=== PATIENT | female | born 1950 | race Caucasian/White ===

== ENCOUNTER → 2016-11-12 | Outpatient (CLI) | payer OTHER | LOC: MMPC 10:00 | PROVIDERS: ATTEND Orthopaedic Surgery | DX: S82.842A Displaced bimalleolar fracture of left lower leg, initial encounter for closed fracture (principal); W00.0XXA Fall on same level due to ice and snow, initial encounter | CPT/HCPCS: 99203; G0463 ==

== ENCOUNTER 2016-11-13 07:58 | Day surgery (SDC) | payer OTHER ==
[~2016-11-13 07:58] MED LIST: ACETAMINOPHEN 1000 MG IV ONE; LIDOCAINE W/ SODIUM BICARB 0.5 ML SYR ONE; Lactated Ringers 1,000 ML PRIMARY IV ONE; ceFAZolin Inj 2gm (Premix) 50 ML IV ONE
--- NOTE | 2016-11-13 08:27 | EKG ---
[address] [address] Measurements Intervals [place] Rate: 99 P: 57 TX: 179 QRS: -28 QRSD: 166 T: 73 QT: 416 QTc: 472 Interpretive Statements SINUS RHYTHM WITH OCCASIONAL SUPRAVENTRICULAR PREMATURE COMPLEXES LEFT BUNDLE BRANCH BLOCK No previous ECG available for comparison Electronically Signed On 11-13-16 13:36:04 MST by Iron Wilkinson [email or web address]
[2016-11-13 08:50] LABS: HEMATOCRIT 38.5 % (37.0-47.0); HEMOGLOBIN 13.3 g/dL (12.0-16.0); MEAN CORPUSCULAR HEMOGLOBIN 32.4 PG (27-31); MEAN CORPUSCULAR HGB CONC 34.5 g/dL (33-37); RED BLOOD COUNT 4.11 10^6/uL (4.20-5.40); WHITE BLOOD COUNT 9.26 10^3/uL (4.8-10.8)
[2016-11-13 09:07] LABS: CALCIUM 9.5 mg/dL (8.7-10.7); POTASSIUM 4.4 meq/L (3.8-5.2); TOTAL PROTEIN 6.9 g/dL (6.1-8.0)
[2016-11-13] MEDS ORDERED: BACITRACIN 50,000 UNIT VIAL IRRIG ONE (09:22)
[2016-11-13] MEDS ORDERED: Sodium Chloride 0.9% vial 10 ML ONE (09:22)
[2016-11-13] MEDS ORDERED: fentaNYL Inj 250 MCG/5 ML VIAL ONE (09:41)
[2016-11-13] MEDS ORDERED: MIDAZOLAM 5 MG/1 ML ONE ×2 (09:41→09:51)
[2016-11-13] MEDS ORDERED: DEXAMETHASONE PF 10 MG/1 ML VIAL ONE (09:41)
[2016-11-13] MEDS ORDERED: BUPIVACAINE 0.5% W/EPI MPF -30 ML VIAL IV ONE (09:41)
[2016-11-13] MEDS ORDERED: MEPIVACAINE HCL/PF 20 MG/1 ML IV ONE (09:42)
[2016-11-13] MEDS ORDERED: PHENYLEPHRINE 10,000 MCG/1 ML VIAL ONE (10:31)
--- NOTE | 2016-11-13 11:31 | CRNA.PROCE ---
Nerve Block Documentation - - Safety Measures: Time Out Taken, Site Verified - - Type of Nerve Block Used: Left Popliteal Fossa Block (Analgesia block for post ankle ORIF, left.) Position for Nerve Block: Prone Moniters Used During Block: EKG, SPO2, NIBP Oxygen Sumpplented: Yes Sedation Used - Enter Amount in Comment Field: Midazolam (mg): Yes (2), Fentanyl (mcg): Yes (100) Skin Prep Used: ChloroPrep (Twice) Draped: No Technique: Nerve Stimulator Nerve Block Needle Used: 80 mm ProBlk II Stimulation Hz: 1 Stimulation Staring mA: 1.8 Stimulation Ending mA: 0.48 Local Anesthetic - Enter Amt in Comment Field: 0.5 % Bupivicaine with Epinephrine 1:200,000 (mL): Yes (20 ml in 3 ml increments), 2 % Mepivacaine (mL) : Yes (10 ml in 3 ml increments) Additives to Nerve Blocks: Dexamethasone (mL): Yes (10)
--- NOTE | 2016-11-13 11:33 | CRNA.PROCE ---
Central Neuraxis Block Placemt - - Safety Measures: Time Out Taken, Site Verified - - Type of Block: Subarachnoid Reason for Block: Surgical Moniters Used During Block: EKG, SPO2, NIBP Sedation Used - Enter Amount Used in Comment Field: Midazolam (mg): Yes (2 ), Fentanyl (mcg): Yes (100) Positioning: Sitting Skin Prep Used: ChloroPrep (Twice) Draped: Yes Skin Infiltration - Enter Amount Used in Comment Field: 1% Xylocaine (mL): Yes ( 1 ) Introducer User: 23 Gauge Spinal Needle Used: 25 Airam 80 mm (1 Dural puncture) Local Anesthetic - Enter Amount Used in Comment Field: 0.75 % Bupivacaine with Dextrose (ml): Yes (1.8 ml) Bioclusive Dressing Applied: No
[2016-11-13] MEDS ORDERED: NORMAL SALINE 10 ML SYRINGE FLUSH IVP PRN (12:18)
[2016-11-13] MEDS ORDERED: MORPHINE SULFATE 2 MG/1 ML IVP PRN (12:18)
[2016-11-13] MEDS ORDERED: ONDANSETRON 4 MG/2 ML VIAL IVP PRN (12:18)
[2016-11-13] MEDS ORDERED: HYDROcodone-APAP 7.5 MG-325 MG TABLET PO PRN (12:18)
[2016-11-13] MEDS ORDERED: Lactated Ringers 1,000 ML PRIMARY IV SCH (12:30)
[2016-11-13 14:45] VITALS: RESP 18
[2016-11-13 15:00] VITALS: TEMP 98.4
--- NOTE | 2016-11-13 16:47 | OPS CRUTCH ---
Diagnosis : Left Ankle ORIF Referral Reason: Gait Training/Walker O: The patient was instructed in the use of walker with gait belt, both on level surfaces and up and down stairs, non weight-bearing. The patient was issued a walker and instructed in its proper use and care. P: No further therapy is indicated at this time. MTDD
== END 2016-11-13 14:00 | disposition home or self-care (01) ==
LOC: SDSC 07:58
PROVIDERS: ATTEND Orthopaedic Surgery
DX: S82.852A Displaced trimalleolar fracture of left lower leg, initial encounter for closed fracture (principal); W00.0XXA Fall on same level due to ice and snow, initial encounter
CPT/HCPCS: 27823; 76001; 80053; 85027; 93005; 93010; 97530; A4216; J0690; J3010; S0020; J0131; J0670; J1100; J2250; J2370; J7120

== ENCOUNTER → 2016-11-19 | Outpatient (CLI) | payer OTHER | LOC: MMPC 10:00 | PROVIDERS: ATTEND Orthopaedic Surgery | DX: S82.852D Displaced trimalleolar fracture of left lower leg, subsequent encounter for closed fracture with routine healing (principal) ==

== ENCOUNTER → 2016-11-26 | Outpatient (CLI) | payer OTHER ==
--- NOTE | 2016-11-26 10:52 | DI ---
LEFT ANKLE, 11/26/2016 10:10 AM: Clinical History: Trimalleolar fracture of the left ankle, closed, with routine healing, subsequent e ncounter. Previous Exam: 11/10/2016. 3 views are submitted. The patient is status post ORIF of the fractures of the medial and lateral mal leoli. Both fractures are in anatomic alignment and position. Fracture lucencies are still visible at both fracture sites. There is either some avulsion of the periosteum versus periosteal new bone form ation at the site of the medial malleolar fracture. There is a step-off of the articular surface of t he distal tibia posteriorly at the site of the posterior malleolar fracture. This step off is approxi mately 2 mm, in the articular surface involvement is probably in the range of 10-15%. There are bony densities anterior to the anterior margin of the distal tibia and these represent avulsion fragments that were present at the time of the initial injury. Reading: Status post ORIF of fractures of the medial and lateral malleoli with chronic alignment and position. There is a fracture of the posterior malleolus with a step-off of approximately 2 mm.
== END ==
LOC: ORTHO 10:17
PROVIDERS: ATTEND Orthopaedic Surgery
DX: S82.852E Displaced trimalleolar fracture of left lower leg, subsequent encounter for open fracture type I or II with routine healing (principal)
CPT/HCPCS: 73610

== ENCOUNTER → 2016-12-10 | Outpatient (CLI) | payer OTHER ==
--- NOTE | 2016-12-10 12:54 | DI ---
LEFT ANKLE, 12/10/2016 10:28 AM: Clinical History: Closed trimalleolar fracture of the left ankle with routine healing. Previous Exam: 11/26/2016. 3 views are submitted. The fracture site involving the medial malleolus shows minimal periosteal new bone formation and partial obliteration of the fracture lucency indicating healing. On the lateral vi ew, the posterior malleolar fracture lucency is also less visible also indicating progressive healing . There has been no change in the appearance of the distal fibular fracture. The ankle mortise is int act. Reading: Evidence of definite healing at the fracture sites involving the medial and posterior malleoli. There has been no change in the appearance of the fracture lucency involving the distal fibular fracture.
== END ==
LOC: ORTHO 12:15
PROVIDERS: ATTEND Orthopaedic Surgery
DX: S82.852E Displaced trimalleolar fracture of left lower leg, subsequent encounter for open fracture type I or II with routine healing (principal)
CPT/HCPCS: 73610

== ENCOUNTER → 2016-12-17 | Outpatient (CLI) | payer OTHER | LOC: MMPC 10:00 | PROVIDERS: ATTEND Orthopaedic Surgery | DX: L76.82 Other postprocedural complications of skin and subcutaneous tissue (principal) ==

== ENCOUNTER → 2016-12-24 | Outpatient (CLI) | payer OTHER ==
--- NOTE | 2016-12-24 12:35 | DI ---
XR ANKLE COMPLETE MIN 3VW,12/24/2016 11:22 AM: Clinical History: Trimalleolar fracture of the left ankle. Previous Exam: December 10, 2016 Findings: 3 views of the left ankle are obtained, and demonstrate lag screw fixation of the medial malleolus. There is also screw and plate fixation of the left lateral malleolus. There is enthesopathy noted at the insertion of the Achilles tendon. There is what appears to be a stable os peroneus adjacent to the proximal portion of the fifth metata rsal. Impression: Stable postsurgical changes as above.
== END ==
LOC: ORTHO 11:34
PROVIDERS: ATTEND Orthopaedic Surgery
DX: S82.852E Displaced trimalleolar fracture of left lower leg, subsequent encounter for open fracture type I or II with routine healing (principal)
CPT/HCPCS: 73610; G0463

== ENCOUNTER → 2017-01-07 | Outpatient (CLI) | payer OTHER ==
--- NOTE | 2017-01-07 11:44 | DI ---
LEFT ANKLE, 01/07/2017 10:15 AM: Clinical History: Closed fracture malleolar fracture with routine healing. Previous Exam: 11/10/2016; 11/26/2016; 12/10/2016; and 12/24/2016. 3 views are submitted. The patient is status post ORIF of the trimalleolar fracture dislocation of th e left ankle. The fracture of the posterior malleolus shows progressive healing although there is sti ll a step-off of about 2 mm. Similar healing is noted in the distal fracture of the fibula. The fract ure through the medial malleolus shows a persistent lucency that is more pronounced on the oblique pr ojection than on the previous exam suggesting delayed union. On the AP projection, there is a 4 mm ballesteros bchondral lucency along the medial aspect of the dome of the talus suggesting an osteochondral defect has developed. Additionally, the joint space is narrowed on the lateral and oblique projections sinc e the exam of 12/10/2016. Readin. The fracture lucency is still visible at the medial malleolus it suggesting delayed or nonunion. 2. Progressive healing is noted in the fractures involving the fibula and the posterior malleolus. A lignment and position are anatomic. 3. There may be an osteochondral defect in the medial aspect of the dome of the talus. Also, there m ay be narrowing of the joint space since the prior exam of 12/10/2016.
== END ==
LOC: ORTHO 10:21
PROVIDERS: ATTEND Orthopaedic Surgery
DX: S82.852E Displaced trimalleolar fracture of left lower leg, subsequent encounter for open fracture type I or II with routine healing (principal)
CPT/HCPCS: 73610

== ENCOUNTER → 2017-01-28 | Outpatient (CLI) | payer OTHER ==
--- NOTE | 2017-01-28 12:51 | DI ---
XR ANKLE COMPLETE MIN 3VW,01/28/2017 10:21 AM: Clinical History: Trimalleolar fracture of the left ankle Previous Exam: January 07, 2017 Findings: 3 views of the left ankle are obtained, and demonstrate postsurgical changes consistent with lag scre w fixation of the medial malleolus. There is also screw and plate fixation of the lateral malleolus. Are stable in these up the at the insertion of the Achilles tendon on the posterior calcaneus. Overlying soft tissue swelling is seen. Impression: Stable postsurgical changes of the left ankle consistent with a healing bimalleolar fracture.
== END ==
LOC: ORTHO 10:23
PROVIDERS: ATTEND Orthopaedic Surgery
DX: S82.851E Displaced trimalleolar fracture of right lower leg, subsequent encounter for open fracture type I or II with routine healing (principal)
CPT/HCPCS: 73610

== ENCOUNTER → 2017-01-28 | Outpatient (CLI) | payer OTHER ==
[2017-01-28 11:07] LABS: HEMATOCRIT 39.2 % (37.0-47.0); HEMOGLOBIN 12.6 g/dL (12.0-16.0); MEAN CORPUSCULAR HEMOGLOBIN 31.1 PG (27-31); MEAN CORPUSCULAR HGB CONC 32.1 g/dL (33-37); MEAN PLATELET VOLUME 10.4 FL (7.4-12.2); RED BLOOD COUNT 4.05 10^6/uL (4.20-5.40)
== END ==
LOC: LAB 10:46
PROVIDERS: ATTEND Orthopaedic Surgery
DX: T81.4XXA Infection following a procedure, initial encounter (principal); S82.852E Displaced trimalleolar fracture of left lower leg, subsequent encounter for open fracture type I or II with routine healing
CPT/HCPCS: 36415; 85027; 85652; 86140

== ENCOUNTER 2017-01-29 05:57 | Inpatient (IN) | payer OTHER ==
[2017-01-29] MEDS ORDERED: LIDOCAINE W/ SODIUM BICARB 0.5 ML SYR ONE (06:05)
[2017-01-29] MEDS ORDERED: Lactated Ringers 1,000 ML PRIMARY IV ONE (06:05)
[2017-01-29] MEDS ORDERED: LIDOCAINE 2%/ EPI 1:200,000 - 20 ML VIAL ONE (06:52)
[2017-01-29] MEDS ORDERED: BUPivacaine Inj 0.5% PF (5mg/ml) 30ml vial ONE (06:53)
[2017-01-29] MEDS ORDERED: MIDAZOLAM 5 MG/1 ML ONE (06:53)
[2017-01-29] MEDS ORDERED: DEXAMETHASONE SOD PHOSPHATE 4 MG/1 ML VIAL ONE (06:53)
[2017-01-29] MEDS ORDERED: fentaNYL Inj 100 MCG/2 ML VIAL ONE (06:53)
[2017-01-29] MEDS ORDERED: Vancomycin Inj 1gm vial ONE (07:06)
[2017-01-29] MEDS ORDERED: Sodium Chloride 0.9% vial 10 ML ONE (07:07)
--- NOTE | 2017-01-29 08:03 | CRNA.PROCE ---
Nerve Block Documentation - - Type of Nerve Block Used: Left Popliteal Fossa Block Position for Nerve Block: Prone Sedation Used - Enter Amount in Comment Field: Midazolam (mg): Yes (2mg) Skin Prep Used: ChloroPrep Draped: No Technique: Nerve Stimulator Nerve Block Needle Used: 80 mm ProBlk II Stimulation Hz: 2 Stimulation Staring mA: 1.4 Stimulation Ending mA: 0.4 Local Anesthetic - Enter Amt in Comment Field: 0.5 % Bupivacaine Plain (mL): Yes (20ml), 2 % Xylocaine with Epinephrine 1:200,000 (mL): Yes (20ml) Additives to Nerve Blocks: Dexamethasone (mL): Yes (8mg(2ml))
[2017-01-29] MEDS ORDERED: BUPIVACAINE 0.5% W/ EPI - 10 ML VIAL ONE (08:29)
[2017-01-29 09:30] LABS: BLOOD UREA NITROGEN 17 mg/dL (7-22); BUN/CREATININE RATIO 24.28 (6-20); CALCIUM 8.8 mg/dL (8.7-10.7); EST GLOMERULAR FILTRATION > 60 (>60 ml/min/1.73m(2))
[2017-01-29] MEDS ORDERED: KETOROLAC 30 MG/1 ML VIAL IVP ONE (09:45)
[2017-01-29] MEDS ORDERED: KETOROLAC 30 MG/1 ML VIAL ONE (09:47)
[2017-01-29] MEDS ORDERED: MAG HYDROX/AL HYDROX/SIMETH 30 ML SUSP PO PRN (10:24)
[2017-01-29] MEDS ORDERED: diphenhydrAMINE 25 MG CAPSULE PO PRN (10:24)
[2017-01-29] MEDS ORDERED: BISACODYL 10 MG SUPPOSITORY RECTAL PRN (10:24)
[2017-01-29] MEDS ORDERED: FISH OIL 1000 MG PO SCH (10:24)
[2017-01-29] MEDS ORDERED: ONDANSETRON 4 MG/2 ML VIAL IVP PRN (10:24)
[2017-01-29] MEDS ORDERED: MORPHINE SULFATE 2 MG/1 ML IVP PRN (10:24)
[2017-01-29] MEDS ORDERED: Ondansetron ODT Tab 8 MG TAB PO PRN (10:24)
[2017-01-29] MEDS ORDERED: CALCIUM CARBONATE 500 MG (TUMS) CHEWABLE TABLET PO PRN (10:24)
[2017-01-29] MEDS ORDERED: IBUPROFEN 400 MG TABLET PO PRN (10:24)
[2017-01-29] MEDS ORDERED: BISACODYL 5 MG TABLET PO PRN (10:24)
[2017-01-29] MEDS ORDERED: Prochlorperazine Tab 10 MG TAB PO PRN (10:24)
[2017-01-29] MEDS ORDERED: Lactated Ringers 1,000 ML PRIMARY IV SCH (10:24)
[2017-01-29] MEDS ORDERED: ACETAMINOPHEN 325 MG TABLET PO PRN (10:24)
[2017-01-29] MEDS ORDERED: Lidocaine 1% 10 MG/ML - 20 ML VIAL SUBCUT PRN (10:34)
[2017-01-29] MEDS ORDERED: LIDOCAINE 2% 20 MG/ML - 20 ML VIAL SUBCUT PRN (10:34)
[2017-01-29] MEDS ORDERED: NORMAL SALINE 10 ML SYRINGE FLUSH IV PRN (10:34)
[2017-01-29] MEDS ORDERED: MORPHINE SULFATE 4 MG/1 ML IV PRN (11:05)
[2017-01-29] MEDS ORDERED: MORPHINE SULFATE 2 MG/1 ML IV PRN (11:05)
[2017-01-29] MEDS ORDERED: MORPHINE SULFATE 10 MG/1 ML IV PRN (11:05)
--- NOTE | 2017-01-29 11:19 | CONSULT ---
Consult Note - Consult Consult Date: 01/29/17 Reason for Consult: PostOp Consulation : Ortho Requesting Physician: Dr. 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 On Saturday she started to develop swelling and increasing pain and some drainage from the site and because of that she saw Dr. Zamudio yesterday he took her to surgery today and removed the hardware he washed with antibiotics and he thought that she had osteomyelitis. He did tell me that he spoke with infectious disease who recommended vancomycin. Cultures were already taken. The patient is denying symptoms now there is no pain, no nausea, no chest pain or shortness of breath. Past Medical History Medical History: 1. History of cardiomyopathy before she attributed that to the previous infection with ejection fraction being 20% 2011. 2. History of hypertension. 3. History of breast cancer status post mastectomy and chemotherapy. Surgical History: 1. Right mastectomy. 2. Open reduction internal fixation of left bimalleolar fracture Family History: Reviewed an Not Pertinent Past Social History: Does not smoke, doesn't drink and no drugs. Tobacco Use: Never Smoker Substance Use Type: None Alcohol Use: None Review of Systems - Review of Systems All Systems: Reviewed & No Additional Complaints Except as Stated Medication / Allergies Home Medications: Home Medications Medication Instructions Recorded Confirmed Type Aspirin [Aspir 81] 81 mg ORAL QD tab 04/04/12 01/29/17 History Fish Oil 1,000 Mg Ec Softgel 1 each PO DAILY 04/04/12 01/29/17 History Furosemide 20 mg PO qd prn 30 Days 04/17/12 01/29/17 Clinic Potassium Chloride 10 meq PO qd with furosemide 30 04/17/12 01/29/17 Clinic Days Lisinopril 1 tab PO DAILY tab 11/12/16 01/29/17 History Hydrocodone/Acetaminophen 1 tab PO Q6-8H #40 tab 01/22/17 01/29/17 Clinic [Hydrocodon-Acetaminoph 7.5-325] Allergies/Adverse Reactions: Allergies Allergy/AdvReac Type Severity Reaction Status Date / Time Tetanus Vaccines and Toxoid Allergy Unknown Anaphylaxis Verified 01/29/17 19:49 [Tetanus] Exam - Vitals Vital Signs: Vital Signs Temperature 96.0 F Temperature Source Temporal Artery Scan Pulse Rate [Pulse Oximeter] 85 Pulse Rate 97 Respiratory Rate 16 Blood Pressure [right leg] 148/100 Blood Pressure 131/74 Pulse Ox 95 Oxygen Flow Rate 2 Oxygen Delivery Method Nasal Cannula Height 5 ft 4 in Weight 172 lb - General General Appearance: POSITIVE: No Acute Distress, Cooperative - Head Head Exam: POSITIVE: Normal Inspection, Atraumatic - Eye Eye Exam: POSITIVE: Normal Appearance - ENT ENT Exam: POSITIVE: Normal Exam - Neck Neck Exam: POSITIVE: Normal Inspection - Respiratory Respiratory Exam: POSITIVE: Clear to Auscultation - Bilaterally - Cardiovascular Cardiovascular Exam: POSITIVE: RRR - GI/Abdominal GI/Abdominal Exam: POSITIVE: Normal Bowel Sounds, Non Tender, Non Distended, Soft - Rectal Rectal Exam: POSITIVE: Deferred - External Exam: POSITIVE: Deferred - Extremities Additional Extremities Exam Details: Dressing applied left leg. Minimal edema on the right leg - Back Back Exam: POSITIVE: Normal Inspection - Neurological Neurological Exam: POSITIVE: Alert, Oriented x 3, CN II-XII Intact - Psychiatric Psychiatric Exam: POSITIVE: Normal Affect Results - Labs CBC and BMP: 01/30/17 05:22 01/30/17 05:22 Labs - Last 24 Hours: Laboratory Results 01/29/17 01/29/17 Range/Units 08:45 09:21 Sodium 137 (135-145) meq/L Potassium 3.7 L (3.8-5.2) meq/L Chloride 107 (98-112) meq/L Carbon Dioxide 19 L (23-33) meq/L Anion Gap 11 (5-20) BUN 17 (7-22) mg/dL Creatinine 0.7 0.7 (0.50-1.20) mg/dL Estimated GFR > 60 (>60 ml/min/1.73m(2)) BUN/Creatinine Ratio 24.28 H (6-20) Glucose 159 H (78-110) mg/dL Calculated Osmolality 288.0 (267-292) mOsm/kg Calcium 8.8 (8.7-10.7) mg/dL Assessment and Plan - Patient Problems (1) Osteomyelitis of left leg Current Visit: Yes Status: Acute Comment: Cultures were sent, she was started on vancomycin and will continue she 'll have a PICC line inserted today. We'll try to get an appointment with infectious disease for her. (2) Hypertension Current Visit: Yes Status: Acute Comment: Continue her lisinopril. (3) History of cardiomyopathy Current Visit: Yes Status: Acute Comment: She said she used to be on a beta mike and now she is only on lisinopril, not sure about the status of her LV function. Will continue with her previous medications for now. The Lasix she said take it is as needed depending on swelling in her legs twice a week. Will Watch her fluid status and decide when to give her the Lasix. (4) Elevated blood sugar Current Visit: Yes Status: Acute Comment: She never been told that she has diabetes mellitus blood sugar is elevated we'll check her A1c and fasting tomorrow. (5) DVT prophylaxis Current Visit: Yes Status: Acute Comment: She'll be started on Xarelto tomorrow
[2017-01-29] MEDS: HYDROcodone-APAP 7.5 MG-325 MG TABLET PO PRN ×2 (11:34→17:52)
--- NOTE | 2017-01-29 15:52 | PT.PROG ---
Progress Note Progress Note: S: Pt. states she is feeling pretty good. States she is getting around pretty good. O: Treatment of gait training on even surface with use of walker and CGA from eob to bathroom. Pt. was able to perform bed mobility independently and sit to stand with supervision. A: Pt. performed gait training very well with little difficulty. She demonstrates safety and proper weight bearing precautions. P: D/C patient from therapies at this time as no further therapy is indicated. Freda Andrews, [employer] [facility]
--- NOTE | 2017-01-29 17:47 | DI ---
XR FLUORO PHYS TIME UP TO 1HR, US VASCULAR ACCESS-US GUIDANCE, XR PICC LINE INSERTION 5 YRS>,11/13/2016 9:30 AM: Clinical History: Osteomyelitis. Previous Exam: None at this facility. Procedure: Risks, benefits and alternatives were explained to the patient and informed written consen t obtained. The patient was placed supine on the fluoroscopy table and the left arm prepped and draped in usual s terile fashion. 1% lidocaine was used for local anesthesia. The basilic vein was originally accessed however, there was some resistance to the 018 wire although this passed to the level of the axillary vein without problems. The power PICC would not advance beyo nd the axillary vein. The brachial vein was then accessed 2 other times. The third access of the left brachial vein was suc cessful and an 018 wire advanced to the level of the innominate vein. A small skin incision was made with an 11 blade scalpel. A peel-away catheter was then advanced in place and the power PICC advanced through the peel-away cat heter. The tip of the catheter was seen at the cavoatrial junction and was fastened to the skin with the pro vided fastener device. The PICC line flushed freely. 4 total views were obtained of the catheter demo nstrating the tip in good position. Findings: Sonographic images demonstrate the tip of the needle within the left brachial vein. Plain film images demonstrate the catheter with the tip in the distal superior vena cava. There is no evidence of pneumothorax. Impression: Successful placement of a left PICC line with the tip in good position.
--- NOTE | 2017-01-29 19:11 | DI ---
XR PICC LINE INSERTION 5 YRS>,01/29/2017 10:34 AM: Clinical History: Osteomyelitis. Previous Exam: None at this facility. Procedure: Risks, benefits and alternatives were explained to the patient and informed written consen t obtained. The patient was placed supine on the fluoroscopy table and the left arm prepped and drape d in usual sterile fashion. 1% lidocaine was used for local anesthesia. The basilic vein was originally accessed however, there was some resistance to the 018 wire although this passed to the level of the axillary vein without problems. The power PICC would not advance beyo nd the axillary vein. The brachial vein was then accessed 2 other times. The third access of the left brachial vein was successful and an 018 wire advanced to the level of th e innominate vein. A small skin incision was made with an 11 blade scalpel. A peel-away catheter was then advanced in place and the power PICC advanced through the peel-away catheter. The tip of the catheter was seen at the cavoatrial junction and was fastened to the skin with the pro vided fastener device. The PICC line flushed freely. 4 total views were obtained of the catheter demo nstrating the tip in good position. Findings: Sonographic images demonstrate the tip of the needle within the left brachial vein. Plain film images demonstrate the catheter with the tip in the distal superior vena cava. There is no evide nce of pneumothorax. Impression: Successful placement of a left PICC line with the tip in good position.
[2017-01-30] MEDS: HYDROcodone-APAP 7.5 MG-325 MG TABLET PO PRN ×3 (00:58→16:12)
[2017-01-30 05:39] LABS: BASOPHILS # (AUTO) 0.01 10*3/UL; BASOPHILS % (AUTO) 0.1 % (0-1); EOSINOPHILS # (AUTO) 0 10*3/UL; EOSINOPHILS % (AUTO) 0 % (0-8); HEMATOCRIT 36.2 % (37.0-47.0); HEMOGLOBIN 11.7 g/dL (12.0-16.0); LYMPHOCYTES # (AUTO) 1.21 10*3/uL; MEAN CORPUSCULAR HEMOGLOBIN 30.8 PG (27-31); MEAN CORPUSCULAR HGB CONC 32.3 g/dL (33-37); MEAN CORPUSCULAR VOLUME 95.3 FL (81-99); MEAN PLATELET VOLUME 10.7 FL (7.4-12.2); MONOCYTES # (AUTO) 0.58 10*3/UL (0.3-0.8); MONOCYTES % (AUTO) 7.2 % (5-15); NEUTROPHILS # (AUTO) 6.21 10*3/UL; NEUTROPHILS % (AUTO) 77.5 % (50-80)
[2017-01-30 05:40] LABS: PLATELET MORPHOLOGY COMMENT NORMAL MORPHOLOGY (NORM); RBC MORPHOLOGY COMMENT NORMAL MORPHOLOGY (NORM); WBC MORPHOLOGY COMMENT NORMAL MORPHOLOGY (NORM)
[2017-01-30 05:45] LABS: HEMOGLOBIN A1C 7.86 % (4.2-6.0)
[2017-01-30 05:49] LABS: BLOOD UREA NITROGEN 28 mg/dL (7-22); CALCIUM 9.4 mg/dL (8.7-10.7); EST GLOMERULAR FILTRATION > 60 (>60 ml/min/1.73m(2))
[2017-01-30] MEDS ORDERED: FUROSEMIDE 20 MG TABLET PO PRN (07:00)
[2017-01-30] MEDS ORDERED: Influenza 16-17 Vaccine(4yrs+) 45 MCG/0.5 ML SYRINGE IM ONE (07:15)
--- NOTE | 2017-01-30 07:57 | PDOC(PROG) ---
Date and Time of Service: 01/30/2017 7:51 AM Interval History: Subjective Patient have some pain in the left ankle, otherwise denying other symptoms. She had a history of what it sounded like an aphthous ulcer post mastectomy and she attributed that to having an upset stomach. Objective : Data - Labs CBC and BMP: 01/30/17 05:22 01/30/17 05:22 Labs - Last 24 Hours: Laboratory Results 01/29/17 01/29/17 01/30/17 Range/Units 08:45 09:21 05:22 WBC 8.02 (4.8-10.8) 10^3/uL RBC 3.80 L (4.20-5.40) 10^6/uL Hgb 11.7 L (12.0-16.0) g/dL Hct 36.2 L (37.0-47.0) % MCV 95.3 (81-99) FL MCH 30.8 (27-31) PG MCHC 32.3 L (33-37) g/dL RDW Std Deviation 52.1 H (39-50) fL RDW Coeff of Joycelyn 15.4 H (11.5-14.5) % Plt Count 300 (140-350) 10*3/uL MPV 10.7 (7.4-12.2) FL Immature Gran % (Auto) 0.1 (0-5) % Neut % (Auto) 77.5 (50-80) % Lymph % (Auto) 15.1 (10-50) % [place] % (Auto) 7.2 (5-15) % Eos % (Auto) 0 (0-8) % Baso % (Auto) 0.1 (0-1) % Immature Gran # (Auto) 0.01 10*3/UL Neut # (Auto) 6.21 10*3/UL Lymph # (Auto) 1.21 10*3/uL [place] # (Auto) 0.58 (0.3-0.8) 10*3/UL Eos # (Auto) 0 10*3/UL Baso # (Auto) 0.01 10*3/UL WBC Morphology Comment Normal morphology (NORM) Plt Morphology Comment Normal morphology (NORM) RBC Morph Comment Normal morphology (NORM) Sodium 137 135 (135-145) meq/L Potassium 3.7 L 4.4 (3.8-5.2) meq/L Chloride 107 106 (98-112) meq/L Carbon Dioxide 19 L 17 L (23-33) meq/L Anion Gap 11 12 (5-20) BUN 17 28 H (7-22) mg/dL Creatinine 0.7 0.7 0.8 (0.50-1.20) mg/dL Estimated GFR > 60 > 60 (>60 ml/min/1.73m(2)) BUN/Creatinine Ratio 24.28 H 35.00 H (6-20) Glucose 159 H 332 H (78-110) mg/dL Mean Blood Glucose 175.738 mg/dL Hemoglobin A1c 7.86 H (4.2-6.0) % Calculated Osmolality 288.0 298.0 H (267-292) mOsm/kg Calcium 8.8 9.4 (8.7-10.7) mg/dL Objective : Exam - General General Appearance: No Acute Distress, Cooperative - Head Head Exam: Normal Inspection - Eye Eye Exam: Normal Appearance - ENT ENT Exam: Normal Exam Additonal ENT Exam Details: There is very small aphthous ulcer on the inside of the lower lip - Neck Neck Exam: Normal Inspection - Respiratory Respiratory Exam: Clear to Auscultation - Bilaterally - Cardiovascular Cardiovascular Exam: RRR - GI/Abdominal GI/Abdominal Exam: Normal Bowel Sounds, Non Tender, Non Distended, Soft - Rectal Rectal Exam: Deferred - External Exam: Deferred - Extremities Additional Extremities Exam Details: Dressing applied to the left leg - Back Back Exam: Normal Inspection - Neurological Neurological Exam: Alert, Oriented x 3, CN II-XII Intact, Moves All Extremities Equally - Psychiatric Psychiatric Exam: Normal Affect Assessment and Plan - Patient Problems (1) Osteomyelitis of left leg Current Visit: Yes Status: Acute Comment: Continue current antibiotics waiting for culture result. We did fax the records to infectious disease to see whether we can get an appointment for her this coming Saturday in the clinic in [place] (2) Hypertension Current Visit: Yes Status: Acute Comment: Continue lisinopril (3) History of cardiomyopathy Current Visit: Yes Status: Acute Comment: Continue holding the Lasix for another day (4) DVT prophylaxis Current Visit: Yes Status: Acute Comment: She'll be started on Xarelto (5) Diabetes Current Visit: Yes Status: Acute Comment: This is new onset, will watch her blood sugar and put her on sliding scale, consider adding long-acting insulin tomorrow
--- NOTE | 2017-01-30 07:59 | ORTHO.PROG ---
Last Taken Vital Signs: Vital Signs - Last Taken Temperature 97.4 F 01/30/17 05:00 Pulse Rate 94 01/30/17 05:00 Respiratory Rate 20 01/30/17 05:00 Blood Pressure 144/80 01/30/17 05:00 Pulse Ox 93 01/30/17 05:00 Subjective: Patient notes pain along the medial malleolar region but otherwise doing well patient notes that she was having some soreness inside her mouth which she had previously when she was having chemotherapy. Objective: Left splint clean and dry no bleeding neurovascularly intact good motion of the toes Intake and Output - 8hrs 01/29/17 01/29/17 01/30/17 01/30/17 13:59 21:59 05:59 13:59 Intake: IV 1450 Intake Oral Amount 440 840 Output: Output, Urine Amount 150 75 200 Output, Estimated Blood 25 Loss Amount Other: Percent Meal Consumed 100% 100% Number of Voids 1 Weight 78.018 kg Weight Measurement Method Standing Scale Laboratory Results 01/29/17 01/29/17 01/30/17 Range/Units 08:45 09:21 05:22 WBC 8.02 (4.8-10.8) 10^3/uL RBC 3.80 L (4.20-5.40) 10^6/uL Hgb 11.7 L (12.0-16.0) g/dL Hct 36.2 L (37.0-47.0) % MCV 95.3 (81-99) FL MCH 30.8 (27-31) PG MCHC 32.3 L (33-37) g/dL RDW Std Deviation 52.1 H (39-50) fL RDW Coeff of Joycelyn 15.4 H (11.5-14.5) % Plt Count 300 (140-350) 10*3/uL MPV 10.7 (7.4-12.2) FL Immature Gran % (Auto) 0.1 (0-5) % Neut % (Auto) 77.5 (50-80) % Lymph % (Auto) 15.1 (10-50) % [place] % (Auto) 7.2 (5-15) % Eos % (Auto) 0 (0-8) % Baso % (Auto) 0.1 (0-1) % Immature Gran # (Auto) 0.01 10*3/UL Neut # (Auto) 6.21 10*3/UL Lymph # (Auto) 1.21 10*3/uL [place] # (Auto) 0.58 (0.3-0.8) 10*3/UL Eos # (Auto) 0 10*3/UL Baso # (Auto) 0.01 10*3/UL WBC Morphology Comment Normal morphology (NORM) Plt Morphology Comment Normal morphology (NORM) RBC Morph Comment Normal morphology (NORM) Sodium 137 135 (135-145) meq/L Potassium 3.7 L 4.4 (3.8-5.2) meq/L Chloride 107 106 (98-112) meq/L Carbon Dioxide 19 L 17 L (23-33) meq/L Anion Gap 11 12 (5-20) BUN 17 28 H (7-22) mg/dL Creatinine 0.7 0.7 0.8 (0.50-1.20) mg/dL Estimated GFR > 60 > 60 (>60 ml/min/1.73m(2)) BUN/Creatinine Ratio 24.28 H 35.00 H (6-20) Glucose 159 H 332 H (78-110) mg/dL Mean Blood Glucose 175.738 mg/dL Hemoglobin A1c 7.86 H (4.2-6.0) % Calculated Osmolality 288.0 298.0 H (267-292) mOsm/kg Calcium 8.8 9.4 (8.7-10.7) mg/dL Microbiology 01/29/17 07:51 Gram Stain - Final Ankle - Left Assessment: Left medial malleolus osteomyelitis on vancomycin Plan: Continue with vancomycin based on the level recommended by infectious disease, await final culture results to see if we can switch to a different medication. Mobilize on crutches or walker. Patient states when she was having chemotherapy she gets similar lesions in her mouth and H2 mike was helpful.
[2017-01-30] MEDS: Insulin Lispro Flexpen 300 UNIT/3 ML INSULN.PEN SUBCUT SCH ×3 (08:25→16:17)
[2017-01-30] MEDS: LISINOPRIL 20 MG TABLET PO SCH (08:38)
[2017-01-30] MEDS: ASPIRIN EC 81 MG TABLET PO SCH (08:38)
[2017-01-30] MEDS: Rivaroxaban Tab 10 MG TAB PO SCH (08:39)
[2017-01-30] MEDS ORDERED: LISINOPRIL 20 MG TABLET PO SCH (09:00)
[2017-01-30] MEDS: NORMAL SALINE 10 ML SYRINGE FLUSH IVP PRN (09:01)
[2017-01-30] MEDS: OMEPRAZOLE 20 MG CAPSULE PO SCH (09:09)
--- NOTE | 2017-01-30 12:37 | CRNA.PROGR ---
Anesthesia Note Anesthesia Progress Note: Post OP Anesthesia Note Pt is sitting up in bed, awake alert and oriented x4, she is tolerating a regular diet, pain is well under control. Current VS stable. Vital Signs (Last 8 hours) Temp Pulse Resp BP Pulse Ox 01/30/17 11:24 97.8 F 101 H 18 139/71 97 01/30/17 08:16 97.8 F 102 H 18 141/73 91 01/30/17 05:00 97.4 F 94 20 144/80 93
--- NOTE | 2017-01-30 17:33 | ORTHO.PROG ---
Last Taken Vital Signs: Vital Signs - Last Taken Temperature 97.6 F 01/30/17 16:13 Pulse Rate 64 01/30/17 16:13 Respiratory Rate 16 01/30/17 16:13 Blood Pressure 148/96 01/30/17 16:13 Pulse Ox 97 01/30/17 11:24 Subjective: Patient notes she has some increasing swelling today when she was up moving around but otherwise is doing relatively well and feels her pain is reasonably controlled on her oral medications. 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 Skin edges looked good otherwise sensory exam are benign. Current Visit Problems DVT prophylaxis (Acute) [id number] Diabetes (Acute) E11.9 Elevated blood sugar (Acute) R73.9 History of cardiomyopathy (Acute) Z86.79 Hypertension (Acute) I10 Osteomyelitis of left leg (Acute) M86.9 Microbiology 01/29/17 07:51 Ankle - Left Gram Stain - Final 01/29/17 07:51 Ankle - Left Aerobic Culture - Preliminary The aerobic cultures preliminarily showed gram-negative hussein identification pending. Gram stain said rare gram-positive cocci Assessment: Left medial malleolus osteomyelitis, cultures pending Plan: At the current time we will continue with IV that vancomycin with a trough level on Saturday morning prior to the next dose. Try to have the patient seen by infectious disease this Saturday in [place]. Follow-up with myself in approximately 12 days for suture removal but we will have the patient follow up the beginning of next week for a dressing change. I will be leaving the area and will have Dr. eNwberry follow the patient, Dr. Newberry we'll talk to Dr. Mejia about continued care until discharge. I will attempt to discuss case with Dr. covarrubias as on late morning or afternoon.
[2017-01-31] MEDS: HYDROcodone-APAP 7.5 MG-325 MG TABLET PO PRN ×3 (04:13→23:34)
[2017-01-31] MEDS: OMEPRAZOLE 20 MG CAPSULE PO SCH (07:36)
[2017-01-31] MEDS: Insulin Lispro Flexpen 300 UNIT/3 ML INSULN.PEN SUBCUT SCH ×3 (07:36→16:40)
[2017-01-31] MEDS: ASPIRIN EC 81 MG TABLET PO SCH (09:53)
[2017-01-31] MEDS: LISINOPRIL 20 MG TABLET PO SCH (09:53)
[2017-01-31] MEDS: Rivaroxaban Tab 10 MG TAB PO SCH (09:53)
[2017-01-31] MEDS ORDERED: metFORMIN 500 MG TABLET PO ONE (11:38)
--- NOTE | 2017-01-31 13:19 | DCSUMMARY ---
Hospitalization Summary Hospital Course: Final Discharge Diagnosis: Current Visit Problems Problem Status Priority Diagnosed Code DVT prophylaxis Acute [id number] Diabetes Acute E11.9 Elevated blood sugar Acute R73.9 History of cardiomyopathy Acute Z86.79 Hypertension Acute I10 Osteomyelitis of left leg Acute M86.9 Diagnostic Data, Laboratory Data, and Procedures of Signifigance: Laboratory Results 01/29/17 01/29/1717 Range/Units 08:45 09:21 05:22 WBC 8.02 (4.8-10.8) 10^3/uL RBC 3.80 L (4.20-5.40) 10^6/uL Hgb 11.7 L (12.0-16.0) g/dL Hct 36.2 L (37.0-47.0) % MCV 95.3 (81-99) FL MCH 30.8 (27-31) PG MCHC 32.3 L (33-37) g/dL RDW Std Deviation 52.1 H (39-50) fL RDW Coeff of Joycelyn 15.4 H (11.5-14.5) % Plt Count 300 (140-350) 10*3/uL MPV 10.7 (7.4-12.2) FL Immature Gran % (Auto) 0.1 (0-5) % Neut % (Auto) 77.5 (50-80) % Lymph % (Auto) 15.1 (10-50) % Cowley % (Auto) 7.2 (5-15) % Eos % (Auto) 0 (0-8) % Baso % (Auto) 0.1 (0-1) % Immature Gran # (Auto) 0.01 10*3/UL Neut # (Auto) 6.21 10*3/UL Lymph # (Auto) 1.21 10*3/uL Cowley # (Auto) 0.58 (0.3-0.8) 10*3/UL Eos # (Auto) 0 10*3/UL Baso # (Auto) 0.01 10*3/UL WBC Morphology Comment Normal morphology (NORM) Plt Morphology Comment Normal morphology (NORM) RBC Morph Comment Normal morphology (NORM) Sodium 137 135 (135-145) meq/L Potassium 3.7 L 4.4 (3.8-5.2) meq/L Chloride 107 106 (98-112) meq/L Carbon Dioxide 19 L 17 L (23-33) meq/L Anion Gap 11 12 (5-20) BUN 17 28 H (7-22) mg/dL Creatinine 0.7 0.7 0.8 (0.50-1.20) mg/dL Estimated GFR > 60 > 60 (>60 ml/min/1.73m(2)) BUN/Creatinine Ratio 24.28 H 35.00 H (6-20) Glucose 159 H 332 H (78-110) mg/dL Mean Blood Glucose 175.738 mg/dL Hemoglobin A1c 7.86 H (4.2-6.0) % Calculated Osmolality 288.0 298.0 H (267-292) mOsm/kg Calcium 8.8 9.4 (8.7-10.7) mg/dL History and Physical pertinent to Admission: Past Medical History Medical History: 1. History of cardiomyopathy before she attributed that to the previous infection with ejection fraction being 20% 2011. 2. History of hypertension. 3. History of breast cancer status post mastectomy and chemotherapy. Surgical History: 1. Right mastectomy. 2. Open reduction internal fixation of left bimalleolar fracture Family History: Reviewed an Not Pertinent Past Social History: Does not smoke, doesn't drink and no drugs. Tobacco Use: Never Smoker Substance Use Type: None Alcohol Use: None Course of Hospitalization: Is a very nice 66-year-old female past medical history significant for cardiomyopathy her EF was 20% in 2012 started to develop swelling and increasing pain and drainage left lower extremity diagnosed with osteomyelitis and was started on vancomycin under the recommendation of infectious disease cultures are taken. She also was newly diagnosed with diabetes with a hemoglobin A1c of 7.8. I will start her on Lantus 10 units tonight and by mouth metformin we will check sugars in the morning. She will be discharged in a.m. to go see the infectious disease specialist I will also make an appointment with a primary care physician at their request to help manage the diabetes. She will have follow-ups with both orthopedic surgery and infectious disease she also had a PICC line inserted I stopped her Motrin she is on xarelto for DVT prophylaxis I given her a prescription for 10 days worth she will review this with her primary care physician and Dr. Zamudio for her DVT prophylaxis and she is also on aspirin she also probably needs a cardiac workup considering her EF of 20% in 2012 I don't know if anyone followed up with this her primary care physician is Dr. Nails. On the date of discharge, the patient was examined: Gen.: No acute distress, alert, nontoxic Heart: Regular rate and rhythm, no murmurs, clicks, gallops, or rubs Lungs: Clear to auscultation bilaterally, breathing is nonlabored Abdomen/GI: Normal tones on auscultation, soft, nontender, nondistended Musculoskeletal/extremities: No clubbing, cyanosis, or edema Vitals reviewed and are listed below Vital Signs (24 hrs) Temp Pulse Pulse Resp BP Pulse Ox 01/31/17 11:43 97.6 F 90 16 139/97 92 01/31/17 07:04 97.6 F 89 16 133/85 94 01/31/17 07:00 64 89 16 01/31/17 04:39 97.5 F 85 20 126/93 96 01/31/17 00:31 97.5 F 86 22 128/75 96 01/30/17 20:22 97.0 F 94 24 115/76 95 01/30/17 16:13 97.6 F 64 16 148/96 Assessment and Plan: 1. As per discharge assessments above 2. Disposition: 3. Condition on discharge, stable and improved. 4. Diet: A better diet low-carb 5. Activities: resume normal activities 6. Follow-Up: 1. PCP she has an appointment with Dr. Lowe in the morning and infectious disease as well 2. 7. Medications at the Time of Discharge: Active Medications Generic Name Dose Route Start Last Admin Trade Name Freq PRN Reason Stop Dose Admin Acetaminophen 325 - 650 mg 01/29/17 10:24 Tylenol PO Q4H PRN pain or fever Acetaminophen/Hydrocodone Bitart 1 tab 01/29/17 10:24 01/31/17 13:04 [place] 7.5/325 Tab PO 1 tab Q6H PRN Administration Pain Al Hydroxide/Mg Hydroxide 10 - 20 ml 01/29/17 10:24 Mylanta Liquid PO Q6H PRN Indigestion Aspirin 81 mg 01/30/17 09:00 01/31/17 09:53 Aspirin Ec PO 81 mg DAILY MARICHUY Administration Bisacodyl 10 mg 01/29/17 10:24 Bisac-Evac Supp RECTAL ONCE PRN Constipation Bisacodyl 10 mg 01/29/17 10:24 Dulcolax Tab PO BID PRN Constipation Calcium Carbonate 1 - 2 tab 01/29/17 10:24 Tums PO Q4H PRN Indigestion Diphenhydramine HCl 25 - 50 mg 01/29/17 10:24 Benadryl PO Q4H PRN Itching Heparin Sodium (Porcine) 300 - 500 unit 01/29/17 10:34 Heparin Lock Inj (For Central Line) IVP BID PRN Flush Sodium Chloride 25 mls @ 200 mls/hr 01/29/17 10:24 01/31/17 08:47 Normal Saline 0.9% IV 200 mls/hr .Post Infusion PRN Administration No Primary IV for Flush ONLY Vancomycin HCl 1.75 gm/ Sodium 500 mls @ 333 mls/hr 01/30/17 08:00 01/31/17 08: 47 Chloride IV 333 mls/hr Q24H MARICHUY Administration Insulin Glargine 10 unit 01/31/17 21:00 Lantus Solostar Inj SUBCUT BEDTIME [facility] Insulin Human Lispro 0 - 12 unit 01/30/17 07:45 01/31/17 11:46 Humalog Flexpen Inj SUBCUT 6 unit AC [facility] Administration Protocol Lisinopril 30 mg 01/30/17 09:00 01/31/17 09:53 Prinivil PO 30 mg DAILY MARICHUY Administration Morphine Sulfate 1 - 2 mg 01/29/17 11:05 Morphine Inj IV Q1H PRN MODERATE TO SEVERE PAIN Morphine Sulfate 3 - 4 mg 01/29/17 11:05 Morphine Inj IV Q1H PRN MODERATE TO SEVERE PAIN Morphine Sulfate 5 mg 01/29/17 11:05 Morphine Inj IV Q1H PRN MODERATE TO SEVERE PAIN Omeprazole 20 mg 01/30/17 08:15 01/31/17 07:36 Prilosec PO 20 mg AC BK MARICHUY Administration Ondansetron HCl 4 mg 01/29/17 10:24 Zofran Inj IVP Q4H PRN NAUSEA / VOMITING Ondansetron HCl 8 mg 01/29/17 10:24 Zofran Odt PO Q6H PRN NAUSEA Prochlorperazine Maleate 10 mg 01/29/17 10:24 Compazine PO Q6H PRN NAUSEA Rivaroxaban 10 mg 01/30/17 09:00 01/31/17 09:53 Xarelto PO 10 mg DAILY MARICHUY Administration Sodium Chloride 5 - 20 ml 01/29/17 10:24 01/30/17 09:01 Saline Flush IVP 20 ml BID PRN Administration Flush Home Medications Medication Instructions Recorded Confirmed Type Aspirin [Aspir 81] 81 mg ORAL QD tab 04/04/12 01/29/17 History Fish Oil 1,000 Mg Ec Softgel 1 each PO DAILY 04/04/12 01/29/17 History Furosemide 20 mg PO qd prn 30 Days 04/17/12 01/29/17 Clinic Potassium Chloride 10 meq PO qd with furosemide 30 04/17/12 01/29/17 Clinic Days Lisinopril 1 tab PO DAILY tab 11/12/16 01/29/17 History Hydrocodone/Acetaminophen 1 tab PO Q6-8H #40 tab 01/22/17 01/29/17 Clinic [Hydrocodon-Acetaminoph 7.5-325] Insulin Glargine SoloStar Inj 10 unit SUBCUT BEDTIME #1 01/31/17 Rx [Lantus SoloStar Inj] insuln.pen Rivaroxaban [Xarelto] 10 mg PO DAILY #10 tab 01/31/17 Rx Vancomycin Inj [Vancocin Inj] 1.75 gm IV Q24H vial 01/31/17 Rx 8. Time, care, counseling and coordination of care for this discharge is greater than 30 minutes. Exam - Vitals Vital Signs: Vital Signs Temperature 97.6 F Temperature Source Temporal Artery Scan Pulse Rate [Apical] 64 Pulse Rate [Pulse Oximeter] 90 Pulse Rate 85 Respiratory Rate 16 Blood Pressure [right leg] 139/97 Blood Pressure 142/92 Pulse Ox 92 Oxygen Flow Rate 2 Oxygen Flow Rate 3 Oxygen Delivery Method Room Air Height 5 ft 4 in Weight 82.236 kg
[2017-01-31] MEDS ORDERED: Insulin Glargine SoloStar Inj 100 UNIT/ML INSULN.PEN SUBCUT SCH (21:00)
[2017-02-01] MEDS: NORMAL SALINE 10 ML SYRINGE FLUSH IVP PRN ×2 (03:34→07:03)
[2017-02-01] MEDS: HEPARIN 500 UNIT/5 ML SYRINGE FOR CENTRAL LINE IVP PRN ×2 (03:35→07:04)
[2017-02-01 04:20] VITALS: RESP 20; TEMP 97.7
[2017-02-01 06:02] LABS: BLOOD UREA NITROGEN 20 mg/dL (7-22); BUN/CREATININE RATIO 28.57 (6-20); CALCIUM 9.5 mg/dL (8.7-10.7); EST GLOMERULAR FILTRATION > 60 (>60 ml/min/1.73m(2)); SERUM ALBUMIN 3.5 g/dL (3.5-4.8)
[2017-02-01] MEDS: Insulin Lispro Flexpen 300 UNIT/3 ML INSULN.PEN SUBCUT SCH (07:04)
[2017-02-01] MEDS: OMEPRAZOLE 20 MG CAPSULE PO SCH (07:08)
[2017-02-01] MEDS: HYDROcodone-APAP 7.5 MG-325 MG TABLET PO PRN (08:55)
== END 2017-02-01 09:04 | disposition home or self-care (01) | DRG 496 ==
LOC: OPS 05:57 → MED/SURG 10:10
PROVIDERS: ADMIT Orthopaedic Surgery; ATTEND Orthopaedic Surgery
PROC: 0QPH04Z Removal of Internal Fixation Device from Left Tibia, Open Approach (ICD-10-PCS; principal; 2017-01-29 07:30)
PROC: 0YBL0ZZ Excision of Left Ankle Region, Open Approach (ICD-10-PCS; 2017-01-29 07:30)
DX: S82.852S Displaced trimalleolar fracture of left lower leg, sequela (principal); M86.172 Other acute osteomyelitis, left ankle and foot; T84.127A Displacement of internal fixation device of bone of left lower leg, initial encounter
CPT/HCPCS: 36415; 36569; 71010; 76000; 76937; 80048; 80053; 80202; 82565; 82948; 83036; 85025; 87070; 87075; 87077; 87186; 87205; 90656; 97116; A4216; J1100; J1885; J2250; J3010; J3370; J3490; J7040; J7120

== ENCOUNTER → 2017-02-01 | Outpatient (CLI) | payer OTHER | LOC: MMPC 09:00 | PROVIDERS: ATTEND Family Medicine | DX: M86.262 Subacute osteomyelitis, left tibia and fibula (principal); I50.9 Heart failure, unspecified; E11.9 Type 2 diabetes mellitus without complications; I10 Essential (primary) hypertension; T84.127A Displacement of internal fixation device of bone of left lower leg, initial encounter; S82.852S Displaced trimalleolar fracture of left lower leg, sequela | CPT/HCPCS: 99214; G0463 ==

== ENCOUNTER 2017-02-09 05:48 | Observation (INO) | payer OTHER ==
[2017-02-09] MEDS ORDERED: Sodium Chl 0.45% 1,000 ML PRIMARY IV ONE (06:21)
[2017-02-09] MEDS ORDERED: LIDOCAINE W/ SODIUM BICARB 0.5 ML SYR ONE ×2 (06:21→07:23)
[2017-02-09] MEDS ORDERED: ceFAZolin Inj 2gm (Premix) 0 ML IV ONE (06:21)
[2017-02-09 07:22] LABS: HEMATOCRIT 39.5 % (37.0-47.0); HEMOGLOBIN 12.8 g/dL (12.0-16.0); MEAN CORPUSCULAR HEMOGLOBIN 31.1 PG (27-31); MEAN CORPUSCULAR HGB CONC 32.4 g/dL (33-37); MEAN CORPUSCULAR VOLUME 96.1 FL (81-99); MEAN PLATELET VOLUME 10.5 FL (7.4-12.2); RED BLOOD COUNT 4.11 10^6/uL (4.20-5.40)
[2017-02-09] MEDS ORDERED: MIDAZOLAM 5 MG/1 ML ONE (07:30)
[2017-02-09] MEDS ORDERED: fentaNYL Inj 250 MCG/5 ML VIAL ONE (07:31)
[2017-02-09] MEDS ORDERED: LIDOCAINE MPF 2% - 5 ML (20 MG/1 ML) ONE (07:31)
[2017-02-09] MEDS ORDERED: ERTAPENEM 1 GM VIAL ONE (07:36)
[2017-02-09] MEDS ORDERED: Sodium Chloride 0.9% 100 ML IV ONE (07:36)
[2017-02-09] MEDS ORDERED: MORPHINE SULFATE 2 MG/1 ML ONE (08:54)
[2017-02-09] MEDS ORDERED: Sodium Chloride 0.9% 1,000 ML PRIMARY IV SCH (10:00)
--- NOTE | 2017-02-09 10:12 | CONSULT ---
Consult Note - Consult Consult Date: 02/09/17 Reason for Consult: PostOp Consulation : Ortho Requesting Physician: Dr. Izaguirre Primary Care Provider: Riley Sharma MD - History of Present Illness History of Present Illness: This is a 66 years old female with medical history significant for history of cardiomyopathy with previous ejection fraction of 20% back in 2011, hypertension , history of breast cancer status post right mastectomy, left bimalleolar fracture back in October she had surgery in November this year was complicated by infection she had surgery for it on January 29 with removal of hardware initially she was put on vancomycin and then she was switched to Invanz after the culture grew Enterobacter, she was taken to the OR today and had washout because of swelling and drainage that started to develop 2-3 days ago. The hospitalist service were consulted for management of medical issues. She is rating her pain may be 5 out of 10. She denied other symptoms, no chest pain, no shortness of breath. Past Medical History Medical History: 1. History of cardiomyopathy before she attributed that to the previous infection with ejection fraction being 20% 2011. 2. History of hypertension. 3. History of breast cancer status post mastectomy and chemotherapy. 4. Diabetes was diagnosed last time she was in the hospital she was discharged on Lantus blood sugar numbers seems to be controlled. Surgical History: 1. Right mastectomy. 2. Open reduction internal fixation of left bimalleolar fracture Family History: Reviewed an Not Pertinent Past Social History: Does not smoke, doesn't drink and no drugs. Tobacco Use: Never Smoker Substance Use Type: Opiate Pain Medication Alcohol Use: Occasionally Review of Systems - Review of Systems All Systems: Reviewed & No Additional Complaints Except as Stated Medication / Allergies Home Medications: Home Medications Medication Instructions Recorded Confirmed Type Aspirin [Aspir 81] 81 mg ORAL QD tab 04/04/12 02/01/17 History Fish Oil 1,000 Mg Ec Softgel 1 each PO DAILY 04/04/12 02/01/17 History Furosemide 20 mg PO qd prn 30 Days 04/17/12 02/01/17 Clinic Potassium Chloride 10 meq PO qd with furosemide 30 04/17/12 02/01/17 Clinic Days Lisinopril 1 tab PO DAILY tab 11/12/16 02/01/17 History Hydrocodone/Acetaminophen 1 tab PO Q6-8H #40 tab 01/22/17 02/01/17 Clinic [Hydrocodon-Acetaminoph 7.5-325] Insulin Glargine SoloStar Inj 10 unit SUBCUT BEDTIME #1 01/31/17 02/01/17 Rx [Lantus SoloStar Inj] insuln.pen Vancomycin Inj [Vancocin Inj] 1.75 gm IV Q24H vial 01/31/17 02/01/17 Rx Rivaroxaban [Xarelto] Sample #1 02/01/17 Clinic Alcohol Antiseptic Pads [Alcohol 1 pad TOPICAL TIDWM #1 box 02/04/17 Clinic Wipes] Blood Sugar Diagnostic [Blood 1 each QID #1 box 02/04/17 Clinic Glucose Test Strip] Lancets 1 each QID #1 box 02/04/17 Clinic Pen Needle, Diabetic [Pen Needle] 1 each SUBCUT QHS #1 box 02/04/17 Clinic Allergies/Adverse Reactions: Allergies Allergy/AdvReac Type Severity Reaction Status Date / Time Tetanus Vaccines and Toxoid Allergy Unknown Anaphylaxis Verified 02/09/17 06:22 [Tetanus] Exam - Vitals Vital Signs: Vital Signs Temperature 97.1 F Temperature Source Temporal Artery Scan Pulse Rate [Pulse Oximeter] 90 Pulse Rate 70 Respiratory Rate 20 Blood Pressure [Right Calf] 154/96 Blood Pressure 165/80 Pulse Ox 97 Oxygen Flow Rate 3l Oxygen Flow Rate 3 Oxygen Delivery Method Nasal Cannula Height 5 ft 3 in Weight 183 lb - General General Appearance: POSITIVE: No Acute Distress, Cooperative - Head Head Exam: POSITIVE: Normal Inspection, Atraumatic - Eye Eye Exam: POSITIVE: Normal Appearance - ENT ENT Exam: POSITIVE: Normal Exam - Neck Neck Exam: POSITIVE: Normal Inspection - Respiratory Respiratory Exam: POSITIVE: Clear to Auscultation - Bilaterally - Cardiovascular Cardiovascular Exam: POSITIVE: Systolic Murmur - GI/Abdominal GI/Abdominal Exam: POSITIVE: Normal Bowel Sounds, Non Tender, Non Distended - Rectal Rectal Exam: POSITIVE: Deferred - External Exam: POSITIVE: Deferred - Extremities Additional Extremities Exam Details: Dressing applied to the left ankle, slight edema in the right leg - Back Back Exam: POSITIVE: Normal Inspection - Neurological Neurological Exam: POSITIVE: Alert, Oriented x 3, CN II-XII Intact, Moves All Extremities Equally - Psychiatric Psychiatric Exam: POSITIVE: Normal Affect - Integumentary Integumentary Exam: POSITIVE: Normal Color Results - Labs CBC and BMP: 02/09/17 07:00 Labs - Last 24 Hours: Laboratory Results 02/09/17 Range/Units 07:00 WBC 9.86 (4.8-10.8) 10^3/uL RBC 4.11 L (4.20-5.40) 10^6/uL Hgb 12.8 (12.0-16.0) g/dL Hct 39.5 (37.0-47.0) % MCV 96.1 (81-99) FL MCH 31.1 H (27-31) PG MCHC 32.4 L (33-37) g/dL RDW Std Deviation 53.2 H (39-50) fL RDW Coeff of Joycelyn 15.6 H (11.5-14.5) % Plt Count 217 (140-350) 10*3/uL MPV 10.5 (7.4-12.2) FL Assessment and Plan - Patient Problems (1) Osteomyelitis of left leg Current Visit: No Status: Acute Comment: She is on Invanz continue the Invanz. (2) Diabetes Current Visit: No Status: Acute Comment: Continue with Lantus. (3) Hypertension Current Visit: No Status: Acute Comment: Blood pressure seems to be elevated, we may have to adjust the dosage of lisinopril starting tomorrow. But we'll see what her numbers tonight. (4) DVT prophylaxis Current Visit: No Status: Acute Comment: She will be started on Xarelto tomorrow
[2017-02-09] MEDS ORDERED: Pneumococcal Vacc 13 Syringe 0.5 ML DISP.SYRIN IM SCH (10:30)
[2017-02-09] MEDS ORDERED: MORPHINE SULFATE 2 MG/1 ML IVP PRN (10:30)
[2017-02-09] MEDS ORDERED: ONDANSETRON 4 MG/2 ML VIAL IVP PRN (10:42)
[2017-02-09] MEDS: oxyCODONE IR Tab 5 MG TAB PO PRN ×4 (10:44→18:48)
[2017-02-09] MEDS ORDERED: ACETAMINOPHEN 500 MG TABLET PO PRN (11:30)
[2017-02-09] MEDS: Insulin Lispro Flexpen 300 UNIT/3 ML INSULN.PEN SUBCUT SCH ×2 (11:51→16:28)
[2017-02-09] MEDS ORDERED: BUPivacaine Liposome/PF (Exparel) Inj 20ml vial INFIL ONE (12:14)
[2017-02-09] MEDS: HEPARIN 500 UNIT/5 ML SYRINGE FOR CENTRAL LINE IVP PRN (12:42)
[2017-02-09] MEDS ORDERED: ALBUTEROL SULFATE 2.5 MG/3 ML NEB PRN (15:56)
[2017-02-09] MEDS ORDERED: Rivaroxaban Tab 10 MG TAB PO SCH (17:00)
[2017-02-09] MEDS ORDERED: LEVALBUTEROL HCL 1.25 MG/3 ML NEB PRN (18:04)
[2017-02-09] MEDS ORDERED: Insulin Glargine SoloStar Inj 100 UNIT/ML INSULN.PEN SUBCUT SCH (21:00)
[2017-02-09] MEDS: DOCUSATE 100 MG CAPSULE PO SCH (21:03)
[2017-02-10] MEDS: oxyCODONE IR Tab 5 MG TAB PO PRN ×3 (00:21→09:51)
[2017-02-10] MEDS ORDERED: NORMAL SALINE 10 ML SYRINGE FLUSH IVP PRN ×2 (05:18→05:27)
[2017-02-10] MEDS: HEPARIN 500 UNIT/5 ML SYRINGE FOR CENTRAL LINE IVP PRN (05:25)
[2017-02-10 05:59] LABS: HEMATOCRIT 37.3 % (37.0-47.0); HEMOGLOBIN 11.7 g/dL (12.0-16.0); MEAN CORPUSCULAR HEMOGLOBIN 30.6 PG (27-31); MEAN CORPUSCULAR HGB CONC 31.4 g/dL (33-37); MEAN CORPUSCULAR VOLUME 97.6 FL (81-99); RED BLOOD COUNT 3.82 10^6/uL (4.20-5.40)
[2017-02-10] MEDS ORDERED: FUROSEMIDE 20 MG TABLET PO SCH (07:00)
[2017-02-10] MEDS: Insulin Lispro Flexpen 300 UNIT/3 ML INSULN.PEN SUBCUT SCH ×2 (07:01→12:43)
--- NOTE | 2017-02-10 07:49 | PDOC(PROG) ---
Date and Time of Service: 02/10/2017 7:47 AM Interval History: Subjective Patient feels better, pain seemed to be down to 1-2 and the ankle. She is denying shortness of breath. She said she felt more like a panic attack yesterday as she got up and used the walker she was overwhelmed but now she doesn't have shortness of breath today. Objective : Data - Labs CBC and BMP: 02/10/17 05:34 Labs - Last 24 Hours: Laboratory Results 02/10/17 Range/Units 05:34 WBC 8.00 (4.8-10.8) 10^3/uL RBC 3.82 L (4.20-5.40) 10^6/uL Hgb 11.7 L (12.0-16.0) g/dL Hct 37.3 (37.0-47.0) % MCV 97.6 (81-99) FL MCH 30.6 (27-31) PG MCHC 31.4 L (33-37) g/dL RDW Std Deviation 53.3 H (39-50) fL RDW Coeff of Joycelyn 15.4 H (11.5-14.5) % Plt Count 264 (140-350) 10*3/uL MPV 10.0 (7.4-12.2) FL ESR 2 (0-20) MM/HR C-Reactive Protein 3.0 H (0.0-0.9) mg/dL Objective : Exam - General General Appearance: No Acute Distress, Cooperative - Head Head Exam: Normal Inspection - Eye Eye Exam: Normal Appearance - ENT ENT Exam: Normal Exam - Neck Neck Exam: Normal Inspection - Respiratory Respiratory Exam: Clear to Auscultation - Bilaterally - Cardiovascular Cardiovascular Exam: RRR - GI/Abdominal GI/Abdominal Exam: Normal Bowel Sounds, Non Tender, Non Distended, Soft - Rectal Rectal Exam: Deferred - Extremities Additional Extremities Exam Details: Slight edema in the right lower leg. PICC line in the left arm. There is some swelling in the left forearm, she said they tried to put an IV there was a tourniquet with just below the elbow different attempts were made and they couldn't get an IV so they use a PICC line. No pain. Assessment and Plan - Patient Problems (1) Osteomyelitis of left leg Current Visit: No Status: Acute Comment: Continue current antibiotics. (2) Diabetes Current Visit: No Status: Acute Comment: Continue Lantus. (3) Hypertension Current Visit: No Status: Acute Comment: Her blood pressure numbers are better now, I told her to write her blood pressure numbers at home and show to those to the environmental technology professor or her primary when she follow-up with them. For the time being I think we'll continue the same dosage. (4) DVT prophylaxis Current Visit: No Status: Acute Comment: She is on Xarelto
[2017-02-10] MEDS ORDERED: Potassium Chloride Tab 10 MEQ TAB PO SCH (09:00)
[2017-02-10] MEDS ORDERED: Ertapenem Inj 1 GM in Sodium Chloride 0.9% 100 ML IV SCH (09:00)
[2017-02-10] MEDS ORDERED: LISINOPRIL 20 MG TABLET PO SCH ×3 (09:00)
[2017-02-10] MEDS ORDERED: Sodium Chloride 0.9% 50 ML IV ONE (09:40)
[2017-02-10] MEDS: DOCUSATE 100 MG CAPSULE PO SCH (09:51)
--- NOTE | 2017-02-10 10:53 | DCSUMMARY ---
Hospitalization Summary Admit Date: 02/09/17 Discharge Date: 02/10/17 Hospital Course: Discharge diagnoses 1. Osteomyelitis of left ankle status post washout 2. Recent diagnosis of diabetes 3. Hypertension 4. History of cardiomyopathy 5. History of breast cancer status post mastectomy Hospital course This is a 66 years old female with medical history significant for history of hypertension, history of cardiomyopathy. Ejection fraction in 2011 was 20% , hypertension, history of breast cancer status post right mastectomy, left bimalleolar fracture back in October she had surgery in November this year this was complicated by an infection for which she had surgery done in January 29 with removal of hardware initially she was put on vancomycin and then she was switched to Invanz after the culture grew Enterobacter. She was taken to the OR on February 09 because of swelling and drainage and washout was done by Dr. Izaguirre please see his note. The hospitalist service were consulted for management of medical issues. We put her on her usual medications. Her blood pressure initially was elevated however it's started to go down to an acceptable level. On the day of discharge she was feeling better pain seems to be controlled. We thought that she could be discharged home, she was discharged to follow-up with the orthopedic physician. I did tell her to write her blood pressure numbers down at home as she has a follow-up with the powder line repairer and they can look at the numbers and decide if there is a need to adjust her blood pressure medication further. We did do an ultrasound of the left left arm because of edema I thought this might be secondary to application of the tourniquet yesterday to try to find an IV and the ultrasound was negative for DVT. Laboratory Results 02/09/17 02/10/17 Range/Units 07:00 05:34 WBC 9.86 8.00 (4.8-10.8) 10^3/uL RBC 4.11 L 3.82 L (4.20-5.40) 10^6/uL Hgb 12.8 11.7 L (12.0-16.0) g/dL Hct 39.5 37.3 (37.0-47.0) % MCV 96.1 97.6 (81-99) FL MCH 31.1 H 30.6 (27-31) PG MCHC 32.4 L 31.4 L (33-37) g/dL RDW Std Deviation 53.2 H 53.3 H (39-50) fL RDW Coeff of Joycelyn 15.6 H 15.4 H (11.5-14.5) % Plt Count 217 264 (140-350) 10*3/uL MPV 10.5 10.0 (7.4-12.2) FL ESR 2 (0-20) MM/HR C-Reactive Protein 3.0 H (0.0-0.9) mg/dL Discharge instructions Diet regular Activity as tolerated nonweightbearing on the left Home Medications Medication Instructions Recorded Confirmed Type Fish Oil 1,000 Mg Ec Softgel 1 each PO DAILY 04/04/12 02/01/17 History Furosemide 20 mg PO qd prn 30 Days 04/17/12 02/01/17 Clinic Potassium Chloride 10 meq PO qd with furosemide 30 04/17/12 02/01/17 Clinic Days Lisinopril 1 tab PO DAILY tab 11/12/16 02/01/17 History Hydrocodone/Acetaminophen 1 tab PO Q6-8H #40 tab 01/22/17 02/01/17 Clinic [Hydrocodon-Acetaminoph 7.5-325] Insulin Glargine SoloStar Inj 10 unit SUBCUT BEDTIME #1 01/31/17 02/01/17 Rx [Lantus SoloStar Inj] insuln.pen Rivaroxaban [Xarelto] Sample #1 02/01/17 Clinic Alcohol Antiseptic Pads [Alcohol 1 pad TOPICAL TIDWM #1 box 02/04/17 Clinic Wipes] Blood Sugar Diagnostic [Blood 1 each QID #1 box 02/04/17 Clinic Glucose Test Strip] Lancets 1 each QID #1 box 02/04/17 Clinic Pen Needle, Diabetic [Pen Needle] 1 each SUBCUT QHS #1 box 02/04/17 Clinic Aspirin [Aspir 81] 81 mg ORAL QD #1 tab 02/10/17 02/01/17 Rx Ertapenem Inj [INVanz Inj] 1 gm IV Q24H #1 vial 02/10/17 Rx Follow-up with the PCP and orthopedic as scheduled Condition at discharge was stable for discharge Exam - Vitals Vital Signs: Vital Signs Temperature 97.4 F Temperature Source Temporal Artery Scan Pulse Rate [Pulse Oximeter] 88 Pulse Rate 70 Respiratory Rate 20 Blood Pressure [Right Calf] 126/74 Blood Pressure 165/80 Pulse Ox 96 Oxygen Flow Rate 1 Oxygen Flow Rate 3 Oxygen Delivery Method Room Air Height 5 ft 3 in Weight 183 lb Patient Problems - Patient Problem List (1) Osteomyelitis of left leg Current Visit: No Status: Acute (2) Diabetes Current Visit: No Status: Acute (3) Hypertension Current Visit: No Status: Acute (4) DVT prophylaxis Current Visit: No Status: Acute
--- NOTE | 2017-02-10 12:42 | DI ---
HISTORY: Left arm swelling status post PICC line placement 1 weeks ago. COMPARISON: None available. TECHNIQUE: Sonographic images of the veins of the left upper extremity were obtained and submitted f or interpretation. FINDINGS: No evidence of thrombus seen in the imaged field in the left upper extremity. A PICC line is present. No evidence of visible thrombus adjacent to the line. IMPRESSION: 1. No evidence of thrombus seen in the imaged field in the left upper extremity. 2. PICC line is present. No evidence of thrombus adjacent to the line. NOTE: The interpreting Radiologist was not present at the time of ultrasound interrogation.
[2017-02-10 14:04] VITALS: RESP 18; TEMP 98
== END 2017-02-10 12:28 | disposition home or self-care (01) ==
LOC: SDSC 05:48 → MED/SURG 09:25
PROVIDERS: ADMIT Internal Medicine; ATTEND Internal Medicine
DX: M86.172 Other acute osteomyelitis, left ankle and foot (principal); E11.9 Type 2 diabetes mellitus without complications; I10 Essential (primary) hypertension
CPT/HCPCS: 11044; 82948 ×2; 85027 ×2; 85652; 86140; 87070; 87075; 87205; 93971; 94150 ×2; 94640; 94761 ×2; C9290; J1815; J2704; J3010; J0690; J1335; J2001; J2250; J2270; J7050

== ENCOUNTER → 2017-02-20 | Outpatient (CLI) | payer OTHER ==
--- NOTE | 2017-02-20 09:28 | DI ---
LEFT ANKLE, 02/20/2017 8:43 AM: Clinical History: Left ankle pain. The patient is status post ORIF of bimalleolar fractures initially sustained on 11/10/2016. Previous Exam: Multiple exams dated 11/26/2016; 12/10/2016; 12/24/2016; 01/07/2017; and 01/28/2017. 3 views are submitted. The 2 threaded metallic screws in the medial malleolus have been removed. Ther e is a lucency at the old fracture site. There is also a lucency at the site of the posterior malleol ar fracture and the step-off between the posterior malleolus and the tibial plafond is greater than o n the most recent exam from 01/28/2017. There has been progressive narrowing of the ankle mortise on t he medial aspect and there is a lucency in the dome of the talus on the medial margin consistent with an osteochondral defect. The fibular fracture site has healed. Readin. Status post removal of the 2 threaded screws from the medial malleolar fracture site. There are f racture lucencies at the site of the medial malleolar fracture and also at the site of the posterior malleolar fracture. The step-off between the tibial plafond and in the posterior malleolus appears gr eater than on the previous study. Both fracture sites are suspicious for delayed union. 2. There is an apparent osteochondral defect on the medial aspect of the dome of the talus. There wang s been progressive narrowing of the joint space medially. 3. The fibular fracture site has healed.
== END ==
LOC: ORTHO 08:24
PROVIDERS: ATTEND Orthopaedic Surgery
DX: S82.852E Displaced trimalleolar fracture of left lower leg, subsequent encounter for open fracture type I or II with routine healing (principal); M86.262 Subacute osteomyelitis, left tibia and fibula
CPT/HCPCS: 73610

== ENCOUNTER → 2017-03-25 | Outpatient (CLI) | payer OTHER ==
--- NOTE | 2017-03-25 15:20 | DI ---
XR ANKLE COMPLETE MIN 3VW,03/25/2017 11:03 AM: Clinical History: Left ankle pain Previous Exam: February 20, 2017 Findings: 3 views of the left ankle are obtained, and demonstrate postsurgical changes consistent with screw an d plate fixation of the left fibula. There is an avulsion fracture of the medial malleolus. Overlying soft tissues are unremarkable. There is enthesopathy at the insertion of the Achilles tendon. There is a left ankle joint effusion. Impression: Postsurgical changes unchanged from the prior exam.
== END ==
LOC: ORTHO 10:47
PROVIDERS: ATTEND Orthopaedic Surgery
DX: M25.572 Pain in left ankle and joints of left foot (principal); S82.52 Displaced fracture of medial malleolus of left tibia; M76.62 Achilles tendinitis, left leg; Z98.890 Other specified postprocedural states
CPT/HCPCS: 73610

== ENCOUNTER → 2017-05-01 | Outpatient (CLI) | payer OTHER ==
--- NOTE | 2017-05-01 13:04 | DI ---
XR ANKLE COMPLETE MIN 3VW,05/01/2017 9:37 AM: Clinical History: Left ankle injury. Previous Exam: March 25, 2017 Findings: 3 views of left ankle are obtained, and demonstrate screw and plate fixation of a left distal fibular fracture. There is also a stable nondisplaced medial malleolar fracture. There is a large ankle join t effusion. There is soft tissue swelling noted and enthesopathy seen at the insertion of the Achilles tendon. Impression: Status post left screw and plate fixation of a fibular fracture. Stable medial malleolar fracture.
== END ==
LOC: ORTHO 09:35
PROVIDERS: ATTEND Orthopaedic Surgery
DX: M25.572 Pain in left ankle and joints of left foot (principal); S82.832D Other fracture of upper and lower end of left fibula, subsequent encounter for closed fracture with routine healing; S82.55XD Nondisplaced fracture of medial malleolus of left tibia, subsequent encounter for closed fracture with routine healing
CPT/HCPCS: 73610

== ENCOUNTER → 2017-05-21 | Outpatient (CLI) | payer OTHER ==
[2017-05-21 15:43] LABS: HEMATOCRIT 41.6 % (37.0-47.0); HEMOGLOBIN 13.3 g/dL (12.0-16.0); MEAN CORPUSCULAR HEMOGLOBIN 30.4 PG (27-31); MEAN PLATELET VOLUME 10.4 FL (7.4-12.2); RED BLOOD COUNT 4.38 10^6/uL (4.20-5.40)
[2017-05-21 16:00] LABS: HEMOGLOBIN A1C 7.29 % (4.2-6.0)
== END ==
LOC: MOB LAB 14:29
PROVIDERS: ATTEND Family Medicine
DX: E11.9 Type 2 diabetes mellitus without complications (principal); Z79.4 Long term (current) use of insulin; I50.9 Heart failure, unspecified; I42.9 Cardiomyopathy, unspecified; R53.83 Other fatigue
CPT/HCPCS: 36415; 83036; 83880; 85027; 99214; G0463

== ENCOUNTER → 2017-06-04 | Outpatient (CLI) | payer OTHER ==
[2017-06-04 10:37] LABS: BLOOD UREA NITROGEN 22 mg/dL (7-22); BUN/CREATININE RATIO 24.44 (6-20); CALCIUM 9.7 mg/dL (8.7-10.7); EST GLOMERULAR FILTRATION > 60 (>60 ml/min/1.73m(2))
== END ==
LOC: MOB LAB 09:11
PROVIDERS: ATTEND Family Medicine
DX: I42.9 Cardiomyopathy, unspecified (principal); R60.0 Localized edema; I50.9 Heart failure, unspecified; I10 Essential (primary) hypertension; M25.572 Pain in left ankle and joints of left foot
CPT/HCPCS: 36415; 80048; 99214; G0463

== ENCOUNTER → 2017-06-14 | Outpatient (CLI) | payer OTHER ==
[2017-06-14 08:03] LABS: BLOOD UREA NITROGEN 23 mg/dL (7-22); BUN/CREATININE RATIO 25.55 (6-20); CALCIUM 10.1 mg/dL (8.7-10.7); EST GLOMERULAR FILTRATION > 60 (>60 ml/min/1.73m(2))
== END ==
LOC: LAB 07:15
PROVIDERS: ATTEND Internal Medicine Cardiovascular Disease
DX: Z79.899 Other long term (current) drug therapy (principal)
CPT/HCPCS: 36415; 80048